=== PATIENT | female | born 1965 | race Caucasian/White ===

== ENCOUNTER 2023-03-29 12:49 | Emergency (ER) | payer SELFPAY ==
[~2023-03-29] VITALS: Ht 157.5 cm; Wt 104.0 kg
[2023-03-29 13:03] VITALS: BP 124/82
[2023-03-29 13:15] VITALS: BP 127/77
[2023-03-29 13:30] VITALS: BP 131/80
[2023-03-29 13:45] VITALS: BP 143/66
[2023-03-29 15:01] VITALS: BP 146/77
[2023-03-29 15:33] VITALS: BP 146/77
== END 2023-03-29 15:34 | disposition short-term general hospital (02) | DRG 563 ==
LOC: ED 12:49
PROC: 2W3RX1Z Immobilization of Left Lower Leg using Splint (ICD-10-PCS; principal; 2023-03-29)
DX: S82.832A Other fracture of upper and lower end of left fibula, initial encounter for closed fracture (principal); S93.05XA Dislocation of left ankle joint, initial encounter; V80.010A Animal-rider injured by fall from or being thrown from horse in noncollision accident, initial encounter; Y93.52 Activity, horseback riding; Y92.009 Unspecified place in unspecified non-institutional (private) residence as the place of occurrence of the external cause